=== PATIENT | male | born 1970 | race Caucasian/White ===

== ENCOUNTER → 2018-05-25 | Outpatient (CLI) | payer OTHER ==
--- NOTE | 2018-05-26 09:08 | XR ---
EXAMINATION TYPE: XR chest 2V DATE OF EXAM: 05/25/2018 COMPARISON: 07/21/2011 HISTORY: Cystic lung lesion 12 years ago. Follow-up exam. TECHNIQUE: Frontal and lateral views of the chest are obtained. FINDINGS: There is no focal air space opacity, pleural effusion, or pneumothorax seen. The cardiac silhouette size is within normal limits. The osseous structures are intact. Mild multilevel degener ative changes of the thoracic spine are seen. IMPRESSION: No acute cardiopulmonary process. The patient's stated lung cyst may represent a pulmona ry bleb or bulla and is not well visualized radiographically. This could be evaluated with CT.
== END | disposition home or self-care (01) ==
LOC: RADXRMAIN 17:21
PROVIDERS: ATTEND Family Medicine
DX: R91.8 Other nonspecific abnormal finding of lung field (principal); R06.02 Shortness of breath
CPT/HCPCS: 71046

== ENCOUNTER → 2018-07-13 | Outpatient (CLI) | payer OTHER ==
--- NOTE | 2018-07-13 10:26 | CT ---
EXAMINATION TYPE: CT chest w con DATE OF EXAM: 07/13/2018 COMPARISON: Chest x-ray 05/25/2018 HISTORY: Abnormal findings lung field CT DLP: 496.4 mGycm Automated exposure control for dose reduction was used. CONTRAST: CT scan of the chest is performed with IV Contrast, patient injected with 100 mL of Isovue 300. FINDINGS: LUNGS: The lungs are remarkable for multiple subcentimeter pulmonary nodules, right upper lobe axial image 20 which is a 7 mm nodule, right middle lobe smooth soft tissue 7 mm nodule is also present axi al image 40, vague indeterminate focus on image 39 within the lingula, smooth nodule measuring only 2 to 3 mm also in the lingula axial image 41. Centrilobular, paraseptal emphysematous changes are pres ent in the upper lobes. There is no pleural effusion or pneumothorax seen. The tracheobronchial tree is patent. MEDIASTINUM: There are no greater than 1 cm hilar or mediastinal lymph nodes. No pericardial effusi on is seen. AORTA: No additional significant abnormality is seen. OTHER: Focal calcification present in the left coronary artery. Cystic focus within the left lobe of the liver measures 2.2 cm, additional focus present on axial image 53 peripherally in the left lobe measures only 13 mm. IMPRESSION: Indeterminate subcentimeter pulmonary nodules, short interval follow-up suggested to ass ess for stability in 3-6 months. Emphysema.
== END ==
LOC: RADCTMAIN 07:21
PROVIDERS: ATTEND Family Medicine
DX: J43.9 Emphysema, unspecified (principal)
CPT/HCPCS: 71260; Q9967

== ENCOUNTER → 2018-12-11 | Outpatient (CLI) | payer OTHER ==
--- NOTE | 2018-12-11 08:59 | CT ---
EXAMINATION TYPE: CT chest wo con DATE OF EXAM: 12/11/2018 COMPARISON: 07/13/2018 HISTORY: Follow up for known lung nodules. CT DLP: 515.7 mGycm, Automated exposure control for dose reduction was used. CONTRAST: Performed injected with 0 mL of Isovue 300. TECHNIQUE: Axial images were obtained at 5 mm thick sections. Reconstructed images are reviewed on [employer] computer in the coronal plane. FINDINGS: Portion of the thyroid visualized is normal. Several small nodules are present. This would include a left lower lobe 0.4 cm nodule. Series 4 image 43. This is stable. A 0.7 cm right middle lobe nodule, series 4 image 43. This is stable. A 0.4 cm nodule in the right middle lobe, series 4 image 35. This is better delineated on the current exam was present previously. A 0.5 cm nodule right upper lobe. Series 4 image 22. This may be 1 mm larger than comparison. There a few blebs present which were present previously. No enlarged mediastinal or hilar adenopathy is evident. The ascending aorta diameter at the level o f the main pulmonary artery is 2.8 cm. The main pulmonary artery diameter at the bifurcation is 2.[address] sections are obtained through the upper abdomen. There is a hepatic cyst adjacent to the l igamentum teres, present previously. IMPRESSIONS: 1. 0.5 cm nodule right upper lobe may be minimally enlarged. Exam is otherwise stable from comparison . 2. Mild blebs which could be related to COPD. 3. Continued monitoring recommended in 3 months.
== END | disposition home or self-care (01) ==
LOC: RADCTMAIN 07:36
PROVIDERS: ATTEND Family Medicine
DX: R91.1 Solitary pulmonary nodule (principal)
CPT/HCPCS: 71250

== ENCOUNTER → 2020-06-10 | Outpatient (CLI) | payer OTHER | END | disposition home or self-care (01) | LOC: LABWHC1 12:56 | PROVIDERS: ATTEND Family Medicine | DX: R05 Cough (principal) | CPT/HCPCS: U0003; C9803 ==

== ENCOUNTER → 2021-12-26 | Outpatient (CLI) | payer OTHER ==
--- NOTE | 2021-12-26 08:43 | CT ---
EXAMINATION TYPE: CT chest wo con CT DLP: 829 mGycm, Automated exposure control for dose reduction was used. DATE OF EXAM: 12/26/2021 8:28 AM COMPARISON: CT chest 12/11/2018, 07/13/2018. CLINICAL INDICATION:Male, 51 years old with history of R91.1 Solitary pulmonary nodule; TECHNIQUE: Multiple axial images were obtained through the chest without IV contrast. Lack of IV or o ral contrast limits evaluation of solid and hollow organ viscera. Coronal and sagittal reformats revi ewed. FINDINGS: LUNGS/ PLEURA: No pneumothorax or pleural effusion. Mild upper lobe predominant centrilobular emphyse matous changes. Stable pulmonary nodules from prior examination with right middle lobe pulmonary nodu le measuring 7 mm (series 4, image 41). Right upper lobe pulmonary nodule measuring 5 mm (series 4, i mage 21). And lingular 3 mm pulmonary nodule (series 4, image 41). No new or enlarging pulmonary nodu les. AIRWAY: Patent and unremarkable. HEART: Size within normal limits. Minimal coronary artery calcifications. MEDIASTINUM: No gross evidence of adenopathy. VASCULATURE: No aortic aneurysm. MUSCULOSKELETAL: No acute osseous abnormalities SOFT TISSUES/LYMPH NODES: Unremarkable. LOWER NECK: No significant findings. UPPER ABDOMEN: Small hiatal hernia. Stable hepatic cysts. IMPRESSION: Stable pulmonary nodules dating back to 07/13/2018, considered benign due to stability. No new or enlar ging pulmonary nodules. Mild COPD changes.
== END | disposition home or self-care (01) ==
LOC: RADCTMAIN 08:02
PROVIDERS: ATTEND Family Medicine
DX: J44.9 Chronic obstructive pulmonary disease, unspecified (principal); R91.8 Other nonspecific abnormal finding of lung field
CPT/HCPCS: 71250

== ENCOUNTER → 2023-06-14 | Outpatient (CLI) | payer OTHER ==
--- NOTE | 2023-06-14 10:46 | CA ---
Exercise Stress Test Report Name: Joe Hernandez Exam Date: 06/14/2023 09:23 Exam Location: [place] Stress Ht (in): 70 Wt (lb): 274 BSA: 2.39 Ordering Phys: Pablo Lewis DO Referring Phys: Pablo Lewis DO Technologist: SANDRA Age: 52 Gender: M : 1970 Procedure CPT: Indications: R07.89 chest pain ICD-10 Codes: Patient History: CHEST PAIN, HTN, PALPITATIONS, FAMILY HX OF HEART DISEASE, CURRENT SMOKER 1PPD X 23 YEARS, PRIOR CADIAC CATH, COPD Medications: Meds past 24 hrs: Pretest Chest Pain: STRESS TEST Ravindra Protocol Exercise Duration (min:sec): 06:[address] Depressions (mm): Angina Score: Duncan Score: Resting HR (bpm): 101 Peak HR (bpm): 145 Resting BP (mmHg): 125 / 73 Peak BP (mmHg): 181 / 65 MPHR: 168 Target HR: 143 % MPHR: 86 METS: 10.3 Total Dose: Peak Dose: Atropine: Double Product: 09794 BP Response: Stress Termination: TARGET HR/MAX EXERTION Stress Symptoms: LIGHTHEADEDNESS Stress Summary: ECG ANALYSIS Resting ECG: Normal sinus rhythm normal axis normal intervals Stress ECG: Patient exercised on Ravindra protocol for 6 minutes and 50 seconds achieving 85% of predicted maximal heart rate without chest pain or diagnostic ST segment depression CONCLUSIONS Average exercise tolerance Negative stress test by EKG criteria Rate PVCs during exercise Dr. Jack Huizar MD (Electronically Signed) Final Date: 14 June 2023 10:45
--- NOTE | 2023-06-14 10:55 | CA ---
Transthoracic Echo Report Name: Joe Hernandez Age: 52 Gender: M : 1970 Exam Date: 06/14/2023 08:41 Exam Location: [facility] Ht (in): 70 Wt (lb): 274 Ordering Physician: Pabol Lewis DO Attending/Referring Phys: Pablo Lewis DO It Security Architect Ana [place] RDCS Procedure CPT: Indications: R07.89 chest pain Cardiac Hx: Technical Quality: Technically difficult study Contrast 1: Definity Total Dose (mL): 2 Contrast 2: Total Dose (mL): MEASUREMENTS (Male / Female) Normal Values 2D ECHO LV Diastolic Diameter PLAX 3.6 cm 4.2 - 5.9 / 3.9 - 5.3 cm LV Systolic Diameter PLAX 2.5 cm IVS Diastolic Thickness 1.7 cm 0.6 - 1.0 / 0.6 - 0.9 cm LVPW Diastolic Thickness 1.4 cm 0.6 - 1.0 / 0.6 - 0.9 cm LV Relative Wall Thickness 0.9 M-MODE Aortic Root Diameter MM 3.4 cm LA Systolic Diameter MM 3.7 cm LA Ao Ratio MM 1.1 DOPPLER AV Peak Velocity 151.7 cm/s AV Peak Gradient 9.2 mmHg AV Mean Velocity 113.9 cm/s AV Mean Gradient 5.6 mmHg AV Velocity Time Integral 24.7 cm LVOT Peak Velocity 111.1 cm/s LVOT Peak Gradient 4.9 mmHg LVOT Velocity Time Integral 18.6 cm Mitral E Point Velocity 58.0 cm/s Mitral A Point Velocity 71.0 cm/s Mitral E to A Ratio 0.8 MV Deceleration Time 188.2 ms MV E' Velocity 8.0 cm/s Mitral E to MV E' Ratio 7.3 FINDINGS Left Ventricle Moderately increased left ventricular wall thickness. Left ventricular cavity size normal. No obvious regional wall motion abnormalities. Left ventricular ejection fraction is estimated at 50-55%. Right Ventricle Right ventricle not well visualized. Right ventricular systolic pressure within normal limits. Right Atrium Normal right atrial size. Left Atrium Normal left atrial size. Mitral Valve Structurally normal mitral valve. No mitral stenosis, regurgitation or prolapse. Aortic Valve Trileaflet aortic valve. No aortic valve stenosis or regurgitation. Tricuspid Valve Structurally normal tricuspid valve. Trace to mild tricuspid regurgitation. Pulmonic Valve Trace pulmonic regurgitation. Pericardium No pericardial effusion. Aorta Normal size aortic root and proximal ascending aorta. CONCLUSIONS Normal LV systolic function Previewed by: Dr. Jack Huizar MD (Electronically Signed) Final Date: 14 June 2023 10:54
== END | disposition home or self-care (01) ==
LOC: RADECHMAIN 08:11
PROVIDERS: ATTEND Family Medicine
DX: I49.3 Ventricular premature depolarization (principal); I10 Essential (primary) hypertension; J44.9 Chronic obstructive pulmonary disease, unspecified; R07.89 Other chest pain; R00.2 Palpitations
CPT/HCPCS: 93017; 93306; Q9957

== ENCOUNTER → 2023-10-05 | Day surgery (SDC) | payer OTHER ==
[~2023-10-05] MED LIST: LIDOCAINE 1% (10MG/ML) FOR IV START INTRADERMA PRN; PROPOFOL 10 MG/ML 20 ML VIAL IV ONE
--- NOTE | 2023-10-05 08:01 | P.GSHP ---
History of Present Illness H&P Date: 10/05/23 CHIEF COMPLAINT: GERD HISTORY OF PRESENT ILLNESS: The patient is a 53-year-old male who presents reports gastroesophageal reflux disease. Upper endoscopy was offered for further evaluation and management. PAST MEDICAL HISTORY: Please see list. PAST SURGICAL HISTORY: Please see list. MEDICATIONS: Please see list. ALLERGIES: Please see list. SOCIAL HISTORY: No illicit drug use FAMILY HISTORY: No reports of Crohn disease or ulcerative colitis. REVIEW OF ORGAN SYSTEMS: CONSTITUTIONAL: No reports of fevers or chills. GI: Denies any blood in stools or constipation. PHYSICAL EXAM: VITAL SIGNS: Stable GENERAL: Well-developed and pleasant in no acute distress. HEENT: No scleral icterus. Extraocular movements grossly intact. Moist buccal mucosa. NECK: Supple without lymphadenopathy. CHEST: Unlabored respirations. Equal bilateral excursions. CARDIOVASCULAR: Regular rate and rhythm. Distal 2+ pulses. ABDOMEN: Soft, nondistended. MUSCULOSKELETAL: No clubbing, cyanosis, or edema. ASSESSMENT: 1. Gastroesophageal reflux disease PLAN: 1. Recommend proceeding with an upper endoscopy Past Medical History Past Medical History: COPD, GERD/Reflux, Hypertension Additional Past Medical History / Comment(s): recent stress test- negative History of Any Multi-Drug Resistant Organisms: None Reported Past Surgical History: Orthopedic Surgery Additional Past Surgical History / Comment(s): EGD, colonoscopy, arthroscopies x2 left knee Past Anesthesia/Blood Transfusion Reactions: Postoperative Nausea & Vomiting (PONV) Additional Past Anesthesia/Blood Transfusion Reaction / Comment(s): severe post op nausea from knee surgeries in 1988 and 1989. Smoking Status: Former smoker - Past Family History Mother Family Medical History: Cancer Additional Family Medical History / Comment(s): colon CA Medications and Allergies Home Medications Medication Instructions Recorded Confirmed Type ALPRAZolam [Xanax] 0.5 mg PO Q8H PRN 09/29/21 10/04/23 History Candesartan/Hydrochlorothiazid 1 each PO QAM 09/29/21 10/04/23 History [Candesartan/Hydrochlorothiazid 32-25 mg] Sertraline HCl [Zoloft] 150 mg PO QAM 09/29/21 10/04/23 History busPIRone HCL 15 mg PO BID 09/29/21 10/04/23 History Daridorexant HCl [Quviviq] 50 mg PO HS 08/01/23 10/04/23 History Allergies Allergy/AdvReac Type Severity Reaction Status Date / Time naproxen [From Aleve] Allergy face and Verified 10/04/23 11:59 lips numbness
[2023-10-05] MEDS: LACTATED RINGERS 1,000 ML IV SCH (08:28)
[2023-10-05 08:58] VITALS: RESP 18; TEMP 97
--- NOTE | 2023-10-05 09:26 | P.PCN ---
Date of Procedure: 10/05/23 Description of Procedure: PREOPERATIVE DIAGNOSIS: Gastroesophageal reflux disease. Morbid obesity. POSTOPERATIVE DIAGNOSIS: Gastroesophageal reflux disease with erosive esophagitis Obstructive sleep apnea Morbid obesity due to excess calories, BMI 40.8 Gastritis. Diaphragmatic hiatal hernia OPERATION: Esophagogastroduodenoscopy with biopsies along esophagus, antrum and duodenum SURGEON: Yazmin Don MD ANESTHESIA: MAC. INDICATIONS: The patient is a 53-year-old female who presents with reflux disease. Benefits and risks of the procedure were described. Informed consent was obtained. DESCRIPTION: The patient was brought into the endoscopy suite and laid in the left lateral decubitus position. An Olympus gastroscope was passed along the posterior oropharynx down to the distal esophagus where the squamocolumnar junction was encountered at 43 cm from the incisors. The stomach was entered and no bile reflux was found. Additional findings are listed below. Biopsies with cold forceps were obtained of the antrum. The first through third portion of the duodenum was examined. Retroflexion of the scope confirmed Hill grade 3 lower esophageal valve. The squamocolumnar junction demonstrated LA grade C erosive esophagitis. The stomach was desufflated. The patient tolerated the procedure well. FINDINGS: Squamocolumnar junction 43 cm from the incisors. Diaphragmatic hiatus at 48 cm. Hiatal hernia, 5 cm Hill grade 3 lower esophageal valve. LA grade C erosive esophagitis. Biopsies obtained Biopsies obtained of the duodenum. Chronic gastritis with biopsies obtained. RECOMMENDATIONS: Omeprazole 40 mg daily prescribed Upper endoscopy as needed. Plan - Discharge Summary Discharge Rx Participant: No New Discharge Prescriptions: New Omeprazole [PriLOSEC] 40 mg PO DAILY #14 cap Continue busPIRone HCL 15 mg PO BID Sertraline HCl [Zoloft] 150 mg PO QAM ALPRAZolam [Xanax] 0.5 mg PO Q8H PRN PRN Reason: Anxiety Candesartan/Hydrochlorothiazid [Candesartan/Hydrochlorothiazid 32-25 mg] 1 each PO QAM Daridorexant HCl [Quviviq] 50 mg PO HS Discharge Medication List ALPRAZolam [Xanax] 0.5 mg PO Q8H PRN 09/29/21 [History] Candesartan/Hydrochlorothiazid [Candesartan/Hydrochlorothiazid 32-25 mg] 1 each PO QAM 09/29/21 [History] Sertraline HCl [Zoloft] 150 mg PO QAM 09/29/21 [History] busPIRone HCL 15 mg PO BID 09/29/21 [History] Daridorexant HCl [Quviviq] 50 mg PO HS 08/01/23 [History] Omeprazole [PriLOSEC] 40 mg PO DAILY #14 cap 10/05/23 [Rx] Follow up Appointment(s)/Referral(s): Yazmin Don MD [STAFF PHYSICIAN] - 11/08/23 3:45 pm Patient Instructions/Handouts: Hiatal Hernia (DC), GERD (Gastroesophageal Reflux Disease) (GEN) Discharge Disposition: HOME SELF-CARE
[2023-10-05 09:52] VITALS: BP 105/67; PULSE 82
== END | disposition home or self-care (01) ==
LOC: ORWHC2ENDO 08:07
PROVIDERS: ATTEND Surgery Plastic and Reconstructive Surgery
DX: K29.50 Unspecified chronic gastritis without bleeding (principal); K21.00 Gastro-esophageal reflux disease with esophagitis, without bleeding; G47.33 Obstructive sleep apnea (adult) (pediatric); K44.9 Diaphragmatic hernia without obstruction or gangrene; K22.70 Barrett's esophagus without dysplasia; J44.9 Chronic obstructive pulmonary disease, unspecified; I10 Essential (primary) hypertension; E66.01 Morbid (severe) obesity due to excess calories; Z68.41 Body mass index [BMI] 40.0-44.9, adult; Z87.891 Personal history of nicotine dependence; Z80.0 Family history of malignant neoplasm of digestive organs; Z79.899 Other long term (current) drug therapy; Z88.6 Allergy status to analgesic agent
CPT/HCPCS: 88305; 43239; J2704